=== PATIENT | female | born 1955 | race Caucasian/White ===

== ENCOUNTER 2021-11-25 06:51 | Day surgery (SDC) | payer OTHER ==
[2021-11-25] MEDS ORDERED: Lactated Ringers 1,000 ML IV SCH (07:00)
[2021-11-25] MEDS ORDERED: fentaNYL 100 MCG/2 ML SDV ONE (08:35)
[2021-11-25] MEDS ORDERED: Propofol 200 MG/20 ML SDV ONE ×3 (08:35→09:34)
[2021-11-25 10:25] VITALS: BP 119/63; PULSE 57
== END 2021-11-25 11:19 | disposition home or self-care (01) ==
LOC: VM.SDS 06:51
PROVIDERS: ATTEND Student in an Organized Health Care Education/Training Program
DX: Z12.11 Encounter for screening for malignant neoplasm of colon (principal); K63.5 Polyp of colon; E66.9 Obesity, unspecified; Z98.890 Other specified postprocedural states; Z79.899 Other long term (current) drug therapy
CPT/HCPCS: 00811; J2704; J3010; J7120

== ENCOUNTER 2022-06-06 14:26 | Emergency (ER) | payer OTHER ==
[2022-06-06] MEDS ORDERED: Ondansetron 4 MG Tab.DIS PO ONE (14:33)
[2022-06-06] MEDS ORDERED: cloNIDine 0.1 MG Tab PO ONE (14:33)
[2022-06-06] MEDS ORDERED: Acetaminophen 325 MG Tab PO ONE (15:00)
[2022-06-06 16:19] VITALS: BP 196/84; PULSE 110
== END 2022-06-06 17:33 | disposition home or self-care (01) ==
LOC: VM.ED 14:26
DX: S09.90XA Unspecified injury of head, initial encounter (principal); F41.9 Anxiety disorder, unspecified; E66.9 Obesity, unspecified; Z68.31 Body mass index [BMI] 31.0-31.9, adult; W18.09XA Striking against other object with subsequent fall, initial encounter
CPT/HCPCS: 99284; A9270